=== PATIENT | male | born 1995 | race Caucasian/White ===

== ENCOUNTER 2018-03-14 11:37 | Emergency (ER) | payer BC, OTHER ==
--- NOTE | 2018-03-14 13:48 | UC ---
Back Pain HPI - HPI Summary HPI Summary: 23-year-old male presents with onset of right-sided back pain around 10:30 this morning when he was lifting a shot back that was full of water. Describes pain as a constant ache that worsens with ending, twisting, and movement. Denies fever, chills, abdominal pain, nausea, vomiting, dysuria, frequency, urgency, hematuria, weakness, numbness, or tingling in the lower extremities. - History of Current Complaint Chief Complaint: UCBackPain Stated Complaint: BACK INJURY Time Seen by Provider: 03/14/18 13:40 Hx Obtained From: Patient Pain Intensity: 6 - Allergies/Home Medications Allergies/Adverse Reactions: Allergies Allergy/AdvReac Type Severity Reaction Status Date / Time oxycodone Allergy Hives Verified 03/14/18 12:01 PMH/Surg Hx/FS Hx/Imm Hx Previously Healthy: No - Denies significant PMH - Surgical History Surgical History: Yes Surgery Procedure, Year, and Place: appendectomy. wisdom tooth removal - Social History Occupation: Employed Full-time Lives: Alone Alcohol Use: Rare Substance Use Type: Marijuana Smoking Status (MU): Never Smoked Tobacco Type: eCigarettes Amount Used/How Often: 3mg nicotine, 10ml/day Have You Smoked in the Last Year: No Review of Systems All Other Systems Reviewed And Are Negative: Yes Constitutional: Negative: Fever, Chills Respiratory: Negative: Shortness Of Breath Cardiovascular: Negative: Chest Pain Gastrointestinal: Negative: Abdominal Pain, Vomiting, Diarrhea, Nausea Genitourinary: Negative: Dysuria, Hematuria, Frequency, Urgency Motor: Negative: Weakness Neurovascular: Negative: Decreased Sensation Musculoskeletal: Positive: Other: - See HPI Neurological: Negative: Paresthesia, Numbness Is Patient Immunocompromised?: No Physical Exam - Summary Physical Exam Summary: GENERAL APPEARANCE: Well developed, well nourished, alert and cooperative, and appears to be in no acute distress. NECK: Neck supple, non-tender. CARDIAC: Normal S1 and S2. No S3, S4 or murmurs. Rhythm is regular. There is no peripheral edema, cyanosis or pallor. Extremities are warm and well perfused. Capillary refill is less than 2 seconds. LUNGS: Clear to auscultation and percussion without rales, rhonchi, wheezing or diminished breath sounds. ABDOMEN: Positive bowel sounds. Soft, nondistended, nontender. No guarding or rebound. No masses or hepatosplenomegally. MUSKULOSKELETAL: ROM intact to all extremities. No joint erythema or tenderness. Normal muscular development. Normal gait. BACK: Examination of the spine reveals normal posture, no spinal deformity or tenderness. Soft tissue tenderness of the thoracic and lumbar back without muscle spasm. NEUROLOGICAL: Strength and sensation symmetric and intact throughout. SKIN: Skin normal color, texture and turgor with no lesions or eruptions. Triage Information Reviewed: Yes Vital Signs: Initial Vital Signs Temp 97.6 F 03/14/18 11:55 Pulse 81 03/14/18 11:55 Resp 18 03/14/18 11:55 BP 137/88 03/14/18 11:55 Pulse Ox 98 03/14/18 11:55 Vital Signs Reviewed: Yes Back Pain Course/Dx - Course Course Of Treatment: 23-year-old male presents with onset of right-sided back pain around 10:30 this morning when he was lifting a shot back that was full of water. Describes pain as a constant ache that worsens with ending, twisting, and movement. Denies fever, chills, abdominal pain, nausea, vomiting, dysuria, frequency, urgency, hematuria, weakness, numbness, or tingling in the lower extremities. Afebrile. Vital signs stable. Exam revealed some right thoracic and lower back soft tissue tenderness with palpation. No tenderness or deformity noted to the spine. Pain is likely from a muscular back strain. He was given an injection of Toradol 30 mg IM in the clinic. Recommend conservative treatment with naproxen 500 mg every 12 hours 7 days then when necessary, cyclobenzaprine 10 mg every 8 hours as needed for severe pain and spasm, and warm moist heat to the affected area for 15-20 minutes at least 4 times a day. He is to return here or follow-up with a primary care provider if symptoms do not improve. Warning symptoms were reviewed the patient. He verbalizes understanding and agrees with plan of care. - Differential Dx/Diagnosis Differential Diagnosis/HQI/PQRI: Herniated Disc, Strain, Sprain Provider Diagnosis: Strain of back Discharge - Sign-Out/Discharge Documenting (check all that apply): Patient Departure All imaging exams completed and their final reports reviewed: No Studies - Discharge Plan Condition: Stable Disposition: HOME Prescriptions: Cyclobenzaprine TAB* [Flexeril 10 MG TAB*] 10 mg PO TID PRN #15 tab PRN Reason: Severe Pain Naproxen [Naproxen 500 mg tab] 500 mg PO Q12HR #30 tablet Patient Education Materials: Back Pain (ED) Forms: *Work Release Referrals: No Primary Care Phys,NOPCP [Primary Care Provider] - Additional Instructions: Your history and exam is consistent with a back strain. Your were given a injection of an anti-inflammatory pain medication called ketorolac (Toradol). You should not take any further anti-inflammatory pain medications such as ibuprofen, naproxen, or aspirin for at least 8 hours after receiving this medication. Take naproxen 1 tab every 12 hours with food for 7 days then may take every 12 hours as needed for pain. You may start this at 10:00 pm tonight. Use cyclobenzaprine (Flexeril) 1 tab every 8 hours as needed for severe pain or spasm. This will cause drowsiness so do not take and drive or operate machinery. Use warm moist heat to the affected area for 15-20 minutes at least 4 times a day to help relax muscles and relieve pain. Follow up with primary care provider in 7 days if symptoms persist. I have provided you with the number to the [facility] Physician Referral service if you need assistance with establishing with a primary care provider. Seek immediate medical attention in the emergency room if you have worsening of pain despite using pain medication, develop weakness, numbness, or tingling in your lower extremities, lose control of your bowel or bladder, or have any worsening of symptoms. - Billing Disposition and Condition Condition: STABLE Disposition: Home
[2018-03-14] MEDS ORDERED: Ketorolac INJ* 30 MG/ML 1 ML VIAL IM ONE (13:55)
== END 2018-03-14 14:15 | disposition home or self-care (01) ==
LOC: UCEAST 11:37
DX: S29.012A Strain of muscle and tendon of back wall of thorax, initial encounter (principal); Z88.5 Allergy status to narcotic agent; X50.9XXA Other and unspecified overexertion or strenuous movements or postures, initial encounter; Y93.89 Activity, other specified; Y92.9 Unspecified place or not applicable
CPT/HCPCS: 96372; 99202; G0463; J1885